=== PATIENT | female | born 1955 | race Caucasian/White ===

== ENCOUNTER 2023-02-18 19:47 | Emergency (ER) | payer MEDICARE, SELFPAY ==
--- NOTE | ~2023-02-18 | XR_ITS ---
EXAMINATION: XR CHEST CLINICAL INFORMATION: Chest pain COMPARISON: None available. TECHNIQUE: 2 views of the chest were obtained. FINDINGS: The lungs are well expanded. There is no focal consolidation, edema, or effusion. No pneumothorax. The cardiomediastinal silhouette is within normal limits. No acute osseous abnormality. Degenerative changes throughout the spine. XR/XR chest 2V IMPRESSION: Clear lungs.
[2023-02-18 19:54] VITALS: BP 157/59; PULSE 78; RESP 16; TEMP 36; O2SAT 97; BMI 30.9
--- NOTE | 2023-02-18 19:54 | ED_ITS ---
HPI - General Adult General Chief complaint: Headache Stated complaint: Severe headache Time Seen by Provider: 02/18/23 20:19 Source: patient Mode of arrival: ambulatory Limitations: language barrier (Icelandic-speaking medical editor utilized) History of Present Illness HPI narrative: Patient is a 67-year-old female who presents emergency department for evaluation. Patient reportedly developed a migraine headache this morning, frontal in location, which is consistent with her prior migraines. It is diffic ult to obtain history regarding migraine frequency, although she states that it is typical for her to get nausea with her migraines. They are typically brought on by eating certain foods which she does endorse eating yesterday. She typically takes Fioricet for her migraines in this works well, however she states that she did not take the Fioricet today. When asked why he did not take it she states because she ?was not feeling well?. Patient's family members present at bedside who states that the only reason she brought her here today was because she had reported vomiting blood. When asked who patient collaborate further arm wrist she states that she had a single episode of a small amount of emesis which she noted very few small flecks of blood to be present. Has had no further episodes of vomiting. She is also expressing upper abdominal pain, primarily in the epigastric region, which has been intermittent today. Denies any diarrhea, constipation, bloody or dark stools. And when asked she does having diffuse anterior chest pain earlier today which has since resolved. She denies fevers, chills, photophobia, phonophobia, vision changes, neck pain, neck stiffness, numbness or tingling of extremities, upper respiratory symptoms, genitourinary symptoms. Related Data Allergies Allergy/AdvReac Type Severity Reaction Status Date / Time No Known Allergies Allergy Verified 02/18/23 19:53 Review of Systems Review of Systems: Constitutional : No Weight loss, No Fever, No Chills ENT/Mouth :? No sore throat, No Rhinorrhea Eyes: No Swelling, No Redness Cardiovascular : Resolved Chest Pain, No SOB, No Edema Respiratory : No Cough, No Sputum, No Wheezing Gastrointestinal : Positive Nausea, Positive Vomiting, no Diarrhea, positive abdominal pain, No Hematochezia, No Melena Genitourinary : No Dysuria, No Urinary Frequency, No Hematuria, No Urgency? Musculoskeletal : No joint pain, No Myalgias, No Joint Swelling Skin : No Skin Lesions, No rash Neuro : No Weakness, No Numbness, No Dizziness, positive Headache Psych : No Anxiety/Panic, No Depression Heme/Lymph: No Bruising, No Lymphadenopathy Endocrine : No Polyuria, No Polydipsia Yes all other systems are reviewed and are negative [facility] Past Medical History Attestation statement: The following information was validated with the patient. Source: old records reviewed Social History Social History Advance Directives: No Advance Directives Information Provided: No Physical Exam ED Vital Signs: Vital Signs - 24 hr 02/18/23 19:54 Temperature 96.8 F Pulse Rate 78 Respiratory Rate 16 Blood Pressure 157/59 H Pulse Oximetry 97 Oxygen Delivery Method Room Air BMI result Body Mass Index 30.9 Appearance: Alert.?Oriented to person, place and time. No acute distress.?Normal affect. Eyes: Pupils equal, round and reactive to light.? ENT: Pharynx normal.?? Neck: Normal inspection.? Neck supple.?? CVS: Heart sounds normal. Normal heart rate and rhythm.? Pulses normal.?? Respiratory: No respiratory distress.? Lung sounds clear to auscultation bilate rally?? Abdomen: Soft and non-tender. No rigidity. No guarding. No rebound t enderness. Normoactive bowel sounds. Skin: Skin warm and dry.? Normal skin color.? ? Extremities: No lower extremity edema.? No calf ttp? Neuro: Moves all extremities spontaneously. Sensation intact bilaterally. CN II- XII intact. No focal neuro deficits. Ambulates with normal steady gait. Course Course Course Narrative: This is a rapid medical exam: Additional HPI, ROS, PE not included below will be deferred to primary provider. Patient is a 67-year-old Icelandic-speaking female with complaint of headache radiating to her neck since this morning, history of migraines, daughter states patient came from [place] around 2 weeks ago. Patient did not take any medications for her symptoms. Patient also reports nausea, and vomited earlier which had a small amount of blood in it. States headache is typical of her migraines. Denies vision changes. Denies worst at onset/worst of life. Reevaluation(s) Reevaluation #1: Troponin within normal limits, EKG revealing sinus bradycardia incomplete right bundle-branch block without acute ischemic findings, currently without any active chest pain symptoms had resolved earlier today and were vague in nature diffusely across the anterior chest. At this time low suspicion for ACS. Time: 22:26 Reevaluation #2: Headache with improvement after receiving Fioricet. Denies any abdominal pain at this time. Symptoms likely consistent with a gastritis, possibly viral in nature. History is not consistent with a for upper GI bleed. At this time feel that she is stable for discharge. Outpatient follow-up with her primary care provider within 3 days. Reviewed worrisome signs and symptoms that would warrant re-evaluation in the emergency department. All questions answered. Time: 23:21 Medications Administered Discontinued Medications Generic Name Dose Route Start Last Admin Trade Name Freq PRN Reason Stop Dose Admin Acetaminophen/Butalbital/Caffeine 1 tab 02/18/23 21:22 02/18/23 21:49 Butalb/Acetamin/Caff 50/325/40 Tablet PO 02/18/23 21:23 1 tab ONCE ONE Administration Al Hydroxide/Mg Hydroxide 30 ml 02/18/23 21:22 02/18/23 21:49 Magnesium Hydrox/Alum Hydrox 30 Ml Oral.Susp PO 02/18/23 21:23 30 ml ONCE ONE Administration Famotidine 20 mg 02/18/23 21:22 02/18/23 21:49 Famotidine 20 Mg Tablet PO 02/18/23 21:23 20 mg ONCE ONE Administration Medical Decision Making Medical Decision Making [facility] Narrative: Patient is a 67-year-old female with reported past medical history of migraines presenting to emergency department with headache consistent with her migraines, not described as severe the worst headache she has ever experienced, no red flag symptoms low suspicion for ICH, or intracranial mass. Predominant concern bringing her here today was flecks of blood that were noted in emesis and abdominal pain. At the time my examination she is overall well-appearing. Her abdominal examination is benign She is amenable to taking her Fioricet for migraine headache, in addition I have ordered Maalox in addition to Pepcid for gastrointestinal symptoms. Will obtain CBC to evaluate for leukocytosis/ anemia, CMP and lipase to evaluate for abnormal electrolytes /abnormal renal function/ abnormal hepatic/biliary function, EKG and troponin to evaluate for ischemia/ACS. and Urinalysis. Differential Diagnosis Differential Diagnoses: The differential diagnosis associated with the presentation includes (As noted above in addition to cholecystitis, cholelithiasis, gastritis, GERD, PUD, Priscilla-Stanford tear) Admission/Observation Consideration of admission/observation: Escalation of care including admission/observation considered (A considered admission for headache and abdominal pain, see course narrative for further detail) Lab Data MDM Lab Attestation statement: I reviewed the patient's lab results. CBC reveals no leukocytosis or anemia needing transfusion criteria. CMP is overall unremarkable. Lipase is within normal limits. Troponin 10.5, which is within normal range. Urinalysis without evidence of infection 02/18/23 21:42 02/18/23 21:42 Labs: Lab Results 02/18/23 02/18/23 02/18/23 Range/Units 21:42 21:42 21:42 WBC 6.5 (4.8-10.8) X10*3/uL RBC 4.17 L (4.20-5.50) X10*6/uL Hgb 12.8 (12.0-16.0) g/dl Hct 36.5 L (37.0-47.0) % MCV 87.5 (80.0-98.0) fL MCH 30.7 (27.0-33.0) pg MCHC 35.1 H (31.0-35.0) g/dl RDW 11.8 (11.0-16.0) % Plt Count 217 (160-400) X10*3/uL MPV 9.5 (9.4-12.3) fL Immature Gran % (Auto) 0.2 (0.0-0.4) % Neut % (Auto) 52.6 (45-73) % Lymph % (Auto) 36.5 (20-40) % Nicholas % (Auto) 9.7 (2-11) % Eos % (Auto) 0.5 (0-4) % Baso % (Auto) 0.5 (0-2) % Lymph # (Auto) 2.4 (1.2-4.9) X10*3/uL Nicholas # (Auto) 0.6 (0.1-1.2) X10*3/uL Eos # (Auto) 0.0 (0.0-0.4) X10*3/uL Baso # (Auto) 0.0 (0.0-0.2) X10*3/uL Abs Immat Gran (auto) 0.01 (0.00-0.03) X10*3/uL Absolute Neuts (auto) 3.4 (2.0-8.3) x10*3/uL Absolute Nucleated RBC 0.000 (0.0-0.012) X10*3/uL Nucleated RBC % (auto) 0.0 (0.0-0.2) /100WBC Sodium 132 L (135-145) mmol/L Potassium 3.7 (3.3-5.1) mmol/L Chloride 94 L (96-108) mmol/L Carbon Dioxide 24 (22-29) mmol/L Anion Gap 18 (12-20) BUN 14 (9-16) mg/dL Creatinine 0.70 (0.5-1.4) mg/dL Estim Creat Clear Calc 81.7 Estimated GFR > 60 Random Glucose 104 (60-115) mg/dL Calcium 9.8 (8.4-10.2) mg/dL Magnesium 2.1 (1.6-2.6) mg/dL Total Bilirubin 0.6 (0.0-1.0) mg/dL AST 21 (5-31) U/L ALT 16 (0-31) U/L Alkaline Phosphatase 68 (39-117) U/L Troponin I High Sens 10.5 (<3.5-17.0) ng/L Total Protein 7.5 (6.5-8.0) g/dL Albumin 4.4 (3.5-5.0) g/dL Lipase 42 (8-78) U/L Urine Color Urine Appearance Urine pH (5.0-9.0) Ur Specific [place] (1.005-1.025) Urine Protein (Neg-Trace) mg/dL Urine Glucose (UA) (Negative) mg/dL Urine Ketones (Negative) mg/dL Urine Blood (Negative) Urine Nitrite (Negative) Ur Leukocyte Esterase (Negative) 02/18/23 Range/Units 21:53 WBC (4.8-10.8) X10*3/uL RBC (4.20-5.50) X10*6/uL Hgb (12.0-16.0) g/dl Hct (37.0-47.0) % MCV (80.0-98.0) fL MCH (27.0-33.0) pg MCHC (31.0-35.0) g/dl RDW (11.0-16.0) % Plt Count (160-400) X10*3/uL MPV (9.4-12.3) fL Immature Gran % (Auto) (0.0-0.4) % Neut % (Auto) (45-73) % Lymph % (Auto) (20-40) % Nicholas % (Auto) (2-11) % Eos % (Auto) (0-4) % Baso % (Auto) (0-2) % Lymph # (Auto) (1.2-4.9) X10*3/uL Nicholas # (Auto) (0.1-1.2) X10*3/uL Eos # (Auto) (0.0-0.4) X10*3/uL Baso # (Auto) (0.0-0.2) X10*3/uL Abs Immat Gran (auto) (0.00-0.03) X10*3/uL Absolute Neuts (auto) (2.0-8.3) x10*3/uL Absolute Nucleated RBC (0.0-0.012) X10*3/uL Nucleated RBC % (auto) (0.0-0.2) /100WBC Sodium (135-145) mmol/L Potassium (3.3-5.1) mmol/L Chloride (96-108) mmol/L Carbon Dioxide (22-29) mmol/L Anion Gap (12-20) BUN (9-16) mg/dL Creatinine (0.5-1.4) mg/dL Estim Creat Clear Calc Estimated GFR Random Glucose (60-115) mg/dL Calcium (8.4-10.2) mg/dL Magnesium (1.6-2.6) mg/dL Total Bilirubin (0.0-1.0) mg/dL AST (5-31) U/L ALT (0-31) U/L Alkaline Phosphatase (39-117) U/L Troponin I High Sens (<3.5-17.0) ng/L Total Protein (6.5-8.0) g/dL Albumin (3.5-5.0) g/dL Lipase (8-78) U/L Urine Color Yellow Urine Appearance Clear Urine pH 6.5 (5.0-9.0) Ur Specific [place] 1.010 (1.005-1.025) Urine Protein Negative (Neg-Trace) mg/dL Urine Glucose (UA) Negative (Negative) mg/dL Urine Ketones Negative (Negative) mg/dL Urine Blood Negative (Negative) Urine Nitrite Negative (Negative) Ur Leukocyte Esterase Negative (Negative) Independent Interpretation I performed an independent interpretation of an: EKG and Plain X-Ray (I have personally interpreted chest x-ray and agree with radiologist's impression, no evidence of pneumonia, pneumothorax, or edema) Interpretation: Rate: 59 Rhythm:? Sinus bradycardia, incomplete right bundle-branch block Start:? Normal Normal P waves.? Normal OLE.?? Normal QRS complex.?? ST T wave :??No ST elevation, no ST depression, no T-wave inversion qTC: 425 prior studies:? None available for review The study has been interpreted contemporaneously by me. Radiology Impression Discussion of test interpretation with radiology: I have reviewed the radiologist's reading. Radiologist Impression: XR/XR chest 2V IMPRESSION: Clear lungs Discharge Plan Discharge Clinical Impression: Migraine, Gastritis Patient Disposition: Home, Self-Care Instructions: Gastritis (ED), Migraine Headache (ED) Additional Instructions: Continue taking your migraine medication as prescribed. Contact your primary care provider and arrange for a follow-up visit within 3 days. Return back to emergency department any new or worsening symptoms or concerns. Referrals: Physician,Unknown J [Primary Care Provider] -
--- NOTE | 2023-02-18 21:23 | ECG_ITS ---
Test Reason : cp Blood Pressure : / mmHG Vent. Rate : 059 BPM Atrial Rate : 059 BPM P-R Int : 176 ms QRS Dur : 096 ms QT Int : 430 ms P-R-T Axes : 048 -07 048 degrees QTc Int : 425 ms Sinus bradycardia Incomplete right bundle branch block Borderline ECG No previous ECGs available Referred By: Staci Roger Electronically Signed By:MICHAELA BARBER
[2023-02-18 21:46] LABS: MANUAL DIFF FLAG NO
[2023-02-18 21:48] LABS: Basophils Percent Auto 0.5 % (0-2); Eosinophils Percent Auto 0.5 % (0-4); Hematocrit 36.5 % (37.0-47.0); Hemoglobin 12.8 g/dl (12.0-16.0); Imm Gran Abs Auto 0.01 X10*3/uL (0.00-0.03); Imm Gran Pct Auto 0.2 % (0.0-0.4); Lymphocytes Absolute Auto 2.4 X10*3/uL (1.2-4.9); Lymphocytes Percent Auto 36.5 % (20-40); Mean Corpuscular HGB Conc 35.1 g/dl (31.0-35.0); Mean Corpuscular Hemoglobin 30.7 pg (27.0-33.0); Mean Corpuscular Volume 87.5 fL (80.0-98.0); Mean Platelet Volume 9.5 fL (9.4-12.3); Monocytes Absolute Auto 0.6 X10*3/uL (0.1-1.2); Monocytes Percent Auto 9.7 % (2-11); Neutrophils Absolute Auto 3.4 x10*3/uL (2.0-8.3); Neutrophils Percent Auto 52.6 % (45-73); Platelet Count 217 X10*3/uL (160-400); Red Blood Count 4.17 X10*6/uL (4.20-5.50); Red Cell Distribution Width 11.8 % (11.0-16.0); White Blood Count 6.5 X10*3/uL (4.8-10.8)
[2023-02-18] MEDS: Famotidine 20 MG TABLET PO (21:49)
[2023-02-18] MEDS: Butalb/Acetamin/Caff 50/325/40 TABLET 1 TAB PO (21:49)
[2023-02-18] MEDS: Magnesium Hydrox/Alum Hydrox 30 ML ORAL.SUSP PO (21:49)
[2023-02-18 22:00] LABS: Appearance Urine Clear; Color Urine Yellow; Glucose Urine UA Negative (Negative); Leukocyte Esterase Urine Negative (Negative); Nitrite Urine Negative (Negative); PH 6.5 (5.0-9.0); Urine Blood Negative (Negative); Urine Ketones Negative (Negative); Urine Protein Negative (Neg-Trace)
[2023-02-18 22:04] LABS: Alanine Aminotransferase 16 U/L (0-31); Albumin Level 4.4 g/dL (3.5-5.0); Alkaline Phosphatase 68 U/L (39-117); Anion Gap 18 (12-20); Aspartate Amino Transferase 21 U/L (5-31); Blood Urea Nitrogen 14 mg/dL (9-16); Calcium 9.8 mg/dL (8.4-10.2); Carbon Dioxide 24 mmol/L (22-29); Chloride 94 mmol/L (96-108); Creatinine Clr Calc Pharmacy 81.7; Estimated Glomerular Filt Rate > 60; Glucose Random 104 mg/dL (60-115); Lipase 42 U/L (8-78); Magnesium 2.1 mg/dL (1.6-2.6); Potassium 3.7 mmol/L (3.3-5.1); Sodium 132 mmol/L (135-145); Total Protein 7.5 g/dL (6.5-8.0)
[2023-02-18 22:09] LABS: Troponin-I High Sensitivity 10.5 ng/L (<3.5-17.0)
[2023-02-18 22:11] LABS: Bilirubin Total 0.6 mg/dL (0.0-1.0)
--- NOTE | 2023-02-18 22:53 | PC.NURSE ---
pt reports head pain now 01/25 sts is a little better pt awaiting provider re-eval call joshi within reach
== END 2023-02-18 23:44 | disposition home or self-care (01) ==
PROVIDERS: Nurse Practitioner Family; Emergency Provider Internal Medicine
DX: G43.909 Migraine, unspecified, not intractable, without status migrainosus (principal); K29.70 Gastritis, unspecified, without bleeding; R00.1 Bradycardia, unspecified; R07.89 Other chest pain; Z79.899 Other long term (current) drug therapy
CPT/HCPCS: 36415; 71046; 80053; 81003; 83690; 83735; 84484; 85025; 93005; 99283; 99284

== ENCOUNTER → 2023-02-18 21:23 | Outpatient (BNV) | payer MEDICARE, SELFPAY | PROVIDERS: Emergency Provider Internal Medicine; Visit Provider Internal Medicine | DX: R00.1 Bradycardia, unspecified (principal); R94.31 Abnormal electrocardiogram [ECG] [EKG] | CPT/HCPCS: 93010 ==

== ENCOUNTER 2023-05-21 12:36 | Emergency (ER) | payer MEDICARE, MEDICAID, SELFPAY ==
--- NOTE | ~2023-05-21 | XR_ITS ---
X-RAY RIGHT SHOULDER AND RIGHT HUMERUS CLINICAL HISTORY: Pain, fall. COMPARISON: No relevant prior studies are available for comparison. TECHNIQUE: 4 views of the right shoulder and 2 views of the right humerus. FINDINGS: Displaced fracture of the greater tuberosity of the humeral head. Trace superior subluxation of the humeral head with respect to the glenoid. Normal appearance of the acromioclavicular joint and preserved coracoclavicular distance. Visualized right-sided ribs and right lung are within normal limits. No abnormal soft tissue calcifications or unexpected radiopaque foreign bodies. XR/XR humerus RT IMPRESSION: 1. Displaced fracture of the greater tuberosity. 2. Trace superior subluxation of the humeral head with respect to the glenoid.
--- NOTE | ~2023-05-21 | XR_ITS ---
X-RAY RIGHT SHOULDER AND RIGHT HUMERUS CLINICAL HISTORY: Pain, fall. COMPARISON: No relevant prior studies are available for comparison. TECHNIQUE: 4 views of the right shoulder and 2 views of the right humerus. FINDINGS: Displaced fracture of the greater tuberosity of the humeral head. Trace superior subluxation of the humeral head with respect to the glenoid. Normal appearance of the acromioclavicular joint and preserved coracoclavicular distance. Visualized right-sided ribs and right lung are within normal limits. No abnormal soft tissue calcifications or unexpected radiopaque foreign bodies. XR/XR shoulder RT min 2V IMPRESSION: 1. Displaced fracture of the greater tuberosity. 2. Trace superior subluxation of the humeral head with respect to the glenoid.
[2023-05-21 12:41] VITALS: BP 188/90; PULSE 72; O2SAT 97; BMI 37.1
[2023-05-21 12:46] VITALS: BP 193/81; PULSE 100; RESP 16; TEMP 36.7; O2SAT 100
[2023-05-21] MEDS: traMADoL HCL 50 MG TABLET PO (12:58)
--- NOTE | 2023-05-21 13:00 | PC.NURSE ---
medication administered per provider order. pt awaiting xray.
--- NOTE | 2023-05-21 13:07 | ED.EXTPRO ---
HPI - Extremity Problem General Chief complaint: Extremity Injury, Upper Stated complaint: FELL ON R ARM SLING ON Time Seen by Provider: 05/21/23 12:45 Source: patient, family and EMS Mode of arrival: EMS Limitations: language barrier ( Sri [place]ankan-speaking supervisor silvering department utilized) History of Present Illness HPI Narrative: patient is a 67-year-old female presents to the emergency department via EMS. She presents emergency department after a mechanical trip and fall, while she was walking into her daughter's home reports that her sandal got caught, resulting in her falling forward, bracing herself onto her right arm, and reports hearing a loud snap. Endorsing pain to the right shoulder and right upper arm. Denies numbness or tingling to the right upper extremity. Denies head strike or loss of consciousness. Denies neck pain or stiffness Denies pain to additional extremities. Denies the use of anticoagulants. Related Data Previous Rx's Medication Instructions Recorded oxycodone 5 mg tablet 5 mg PO Q6H PRN pain #14 tabs 05/21/23 Allergies Allergy/AdvReac Type Severity Reaction Status Date / Time No Known Allergies Allergy Verified 05/21/23 12:44 Review of Systems Review of Systems: Yes all other systems are reviewed and are negative PMFSH Past Medical History Attestation statement: The following information was validated with the patient. Source: old records reviewed Social History Social History Advance Directives: No Advance Directives Information Provided: No Physical Exam Vital Signs: Vital Signs: Last Vital Signs Temp 98.1 F 05/21/23 12:46 Pulse 76 05/21/23 16:18 Resp 18 05/21/23 16:18 BP 186/80 H 05/21/23 16:18 Pulse Ox 97 05/21/23 16:18 O2 Del Method Room Air 05/21/23 16:18 BMI result Body Mass Index 37.1 Appearance: Alert.?Oriented to person, place and time. No acute distress.?Normal affect. Head: normocephalic, atraumatic Eyes: Pupils equal, round and reactive to light.? ENT: Pharynx normal.?? Neck: Normal inspection.? Neck supple.?? No midline cervical spine tenderness, step-offs, deformities. CVS: Heart sounds normal. Normal heart rate and rhythm.? Pulses normal.?? Chest wall without palpable tenderness, crepitus. Respiratory: No respiratory distress.? Lung sounds clear to auscultation bilaterally?? Abdomen: Soft and non-tender. Normoactive Extremities: right upper extremity with point tenderness to the shoulder, and proximal humerus, no obvious deformity. 2+ radial pulse bilaterally. Neuro: Moves all extremities spontaneously. Sensation intact bilaterally. No focal neuro deficits. Ambulates with normal steady gait. Medications Administered Discontinued Medications Generic Name Dose Route Start Last Admin Trade Name Freq PRN Reason Stop Dose Admin Morphine Sulfate 4 mg 05/21/23 13:38 05/21/23 13:42 Morphine Sulfate 4 Mg/Ml Cartridge IM 05/21/23 13:39 4 mg ONCE ONE Administration Protocol Ondansetron HCl 4 mg 05/21/23 13:52 05/21/23 13:54 Ondansetron Odt 4 Mg Tab.Rapdis TRANSLINGU 05/21/23 13:53 4 mg ONCE ONE Administration Tramadol HCl 50 mg 05/21/23 12:45 05/21/23 12:58 Tramadol Hcl 50 Mg Tablet PO 05/21/23 12:46 50 mg ONCE ONE Administration Medical Decision Making Medical Decision Making MDM Narrative: Patient is a 67-year-old female who presents emergency department via EMS for evaluation after mechanical trip and fall sustaining injury predominantly to right arm as per HPI. There is no head strike or reported loss of consciousness, she is not on anticoagulants, she has no focal neurological deficits upon examination. XR of the right shoulder and humerus revealing fracture of the proximal humeral head, a reviewed this imaging with orthopedics on-call, Corie RODRÍGUEZ who recommends placement in sling and outpatient follow-up. at this time extremity is neurovascularly intact distally. received tramadol for pain management initially without significant improvement, then received morphine IM with improvement in pain. Stable for discharge home. Discussed worrisome signs and symptoms that would warrant re-evaluation in the emergency department.. Differential Diagnosis Differential Diagnoses: The differential diagnosis associated with the presentation includes ( contusion, fracture, dislocation) Consult Healthcare Provider Management of the patient was discussed with: [facility] ( Orthopedics as noted above) Independent Interpretation I performed an independent interpretation of an: Plain X-Ray ( I personally interpreted XR imaging and agree with radiologist impression.) Radiology Impression Discussion of test interpretation with radiology: I have reviewed the radiologist's reading. Radiologist Impression: XR/XR humerus RT IMPRESSION: 1. Displaced fracture of the greater tuberosity. 2. Trace superior subluxation of the humeral head with respect to the glenoid. Independent Historian Clinical information obtained from an independent historian. History obtained from or confirmed by: EMS and Other ( Daughter present at bedside a confirms history) External Record Review External record reviewed: Other ([facility]; no conflicts) Prescription Management I considered prescription management with: Pain Medication Discharge Plan Discharge Clinical Impression: Fracture of head of humerus Qualifiers: Encounter type: initial encounter Fracture type: closed Laterality: right Qualified Code(s): S42.291A - Other displaced fracture of upper end of right humerus, initial encounter for closed fracture Patient Disposition: Home, Self-Care Additional Instructions: Please leave the sling in place at all times. You may apply ice to the area for 10-15 minutes 3-4 times daily. As discussed, please contact the orthopedic office to arrange for a follow-up visit. I have sent a prescription for oxycodone to the pharmacy to help with severe pain that is unrelieved by acetaminophen. Oxycodone is a narcotic medication, it may be addictive, it can make you drowsy, should not drive, drink, or work while taking this medication. If you develop severe worsening pain, numbness or tingling to the arm, cold sensation to the hand, any new or worsening symptoms or concerns you may return back to the emergency department for re-evaluation. Prescriptions: New oxycodone 5 mg tablet 5 mg PO Q6H PRN (Reason: pain) Qty: 14 0RF Rx Instructions: Partial Fill upon patient request. Referrals: Vesna Alexis PA-C [Physician Electric Detector Operator] - ( humeral head fracture) Interventions: ED Discharge Assessment Last Done: 05/21/23 16:41 Discharge Date/Time: 05/21/23 16:42 Print Language: [place]an
[2023-05-21] MEDS: Morphine Sulfate 4 MG/ML CARTRIDGE IM (13:42)
--- NOTE | 2023-05-21 13:44 | PC.NURSE ---
medication administered per provider order. will apply splint shortly.
[2023-05-21] MEDS: Ondansetron ODT 4 MG TAB.RAPDIS TRANSLINGU (13:54)
--- NOTE | 2023-05-21 14:15 | PC.NURSE ---
slint applied to right upper extremity. pt tolerated well. pt still verbalizing 10/10 pain at this time. zofran administered per provider order d/t nausea/vomiting into emesis bag.
[2023-05-21 16:18] VITALS: BP 186/80; PULSE 76; RESP 18; O2SAT 97
== END 2023-05-21 16:42 | disposition home or self-care (01) ==
PROVIDERS: Emergency Provider Emergency Medicine
DX: S42.291A Other displaced fracture of upper end of right humerus, initial encounter for closed fracture (principal); M79.601 Pain in right arm; M25.511 Pain in right shoulder; W01.10XA Fall on same level from slipping, tripping and stumbling with subsequent striking against unspecified object, initial encounter; Y93.9 Activity, unspecified; Y92.9 Unspecified place or not applicable; Y99.9 Unspecified external cause status; Z79.899 Other long term (current) drug therapy
CPT/HCPCS: 73030; 73060; 96372; 99283; 99284; J2270

== ENCOUNTER 2024-06-13 12:54 | Emergency (ER) | payer MEDICARE, MEDICAID, SELFPAY ==
--- NOTE | ~2024-06-13 | US_ITS ---
EXAMINATION: US TRIPLEX LOWER EXTREMITY, RIGHT CLINICAL INFORMATION: Pain, swelling, redness COMPARISON: None available. TECHNIQUE: Color-flow triplex imaging with spectral analysis and compression Doppler were performed on the right lower extremity. FINDINGS: Respiratory variation, normal compression and augmented flow are noted throughout the right lower extremity. The visualized common femoral vein, superficial femoral vein, profunda femoral vein, popliteal vein and midcalf peroneal and posterior tibial venous segments show no evidence of deep venous thrombosis. There is no Marsh's cyst. US/US venous duplex LE RT IMPRESSION: No evidence of deep venous thrombosis involving the right lower extremity. Electronically signed by: Dianne Trujillo MD 06/13/2024 03:58 PM EST RP
[2024-06-13 13:20] VITALS: BP 152/53; PULSE 83; RESP 18; TEMP 37; O2SAT 94; BMI 42.9
--- NOTE | 2024-06-13 13:25 | ED.GENADULT ---
HPI - General Adult General Chief complaint: Extremity Injury, Lower Stated complaint: Swollen R Leg No Injury Time Seen by Provider: 06/13/24 18:09 Source: patient Mode of arrival: ambulatory Limitations: no limitations History of Present Illness ED Provider: cristo ZIMMERMAN narrative: Patient been complaining of both lower extremity swelling more on the right side for last 3 months since started on amlodipine no shortness a breath liver problems swelling gets better in a.m. gets worse in the evening Related Data Previous Rx's ?Medication ?Instructions ?Recorded oxycodone 5 mg tablet 5 mg PO Q6H PRN pain #14 tabs 05/21/23 losartan 50 mg-hydrochlorothiazide 1 tab PO DAILY #30 tabs 06/13/24 12.5 mg tablet Allergies Allergy/AdvReac Type Severity Reaction Status Date / Time No Known Allergies Allergy Verified 06/13/24 13:22 Review of Systems Review of Systems: Yes all other systems are reviewed and are negative PMFSH Social History Social History Advance Directives: No Advance Directives Information Provided: No Physical Exam ED Vital Signs: Vital Signs - 24 hr 06/13/24 13:20 06/13/24 16:52 06/13/24 18:52 Temperature 98.6 F 98.3 F 98.3 F Pulse Rate 83 72 72 Respiratory Rate 18 16 16 Blood Pressure 152/53 H 150/61 H 150/61 H Pulse Oximetry 94 94 94 Oxygen Delivery Method Room Air Room Air Room Air BMI result Body Mass Index 42.9 Appearance: Alert. Oriented X3. No acute distress. Eyes: No pallor or icterus ENT: Pharynx normal. Oral Mucosa moist Neck: Normal inspection. Neck supple. CVS: Normal heart rate and rhythm. Pulses normal. Respiratory: No respiratory distress. Equal air entry bilateral, no wheezing/rales/rhonchi Abdomen: Soft and nontender. Bowel sounds are present, no mass palpable, no CVA tenderness Skin: Skin warm and dry. Normal skin color. Normal skin turgor. Extremities: 3+R lower extremity edema. 1+ left lower leg edema No calf tenderness Neuro: Oriented X 3. No motor deficit. Course Course Course Narrative: This is a rapid medical exam performed by Harry Almaguer NP: Additional HPI, ROS, PE not included below will be deferred to primary provider. Patient is a 68-year-old female presenting with complaint of pain, itching, and swelling to right lower leg, referred to ED by PCP. Plan: labs, US Medical Decision Making Medical Decision Making [facility] Narrative: Patient with dependent leg edema according to patient's started after amlodipine was started 3 months ago venous Doppler negative labs are stable no signs of heart failure will prescribe a losartan with hydrochlorothiazide will stop amlodipine Differential Diagnosis Differential Diagnoses: The differential diagnosis associated with the presentation includes CHF/DVT/dependent edema Lab Data [facility] Lab Attestation statement: I reviewed the patient's lab results. 06/13/24 13:38 06/13/24 13:38 Labs: Lab Results 06/13/24 Range/Units 13:38 WBC 5.5 (4.8-10.8) X10*3/uL RBC 4.33 (4.20-5.50) X10*6/uL Hgb 13.1 (12.0-16.0) g/dl Hct 38.6 (37.0-47.0) % MCV 89.1 (80.0-98.0) fL MCH 30.3 (27.0-33.0) pg MCHC 33.9 (31.0-35.0) g/dl RDW 12.9 (11.0-16.0) % Plt Count 217 (160-400) X10*3/uL MPV 9.9 (9.4-12.3) fL Immature Gran % (Auto) 0.2 (0.0-0.4) % Neut % (Auto) 56.1 (45-73) % Lymph % (Auto) 32.9 (20-40) % [place] % (Auto) 8.5 (2-11) % Eos % (Auto) 1.6 (0-4) % Baso % (Auto) 0.7 (0-2) % Lymph # (Auto) 1.8 (1.2-4.9) X10*3/uL [place] # (Auto) 0.5 (0.1-1.2) X10*3/uL Eos # (Auto) 0.1 (0.0-0.4) X10*3/uL Baso # (Auto) 0.0 (0.0-0.2) X10*3/uL Abs Immat Gran (auto) 0.01 (0.00-0.03) X10*3/uL Absolute Neuts (auto) 3.1 (2.0-8.3) x10*3/uL Absolute Nucleated RBC 0.000 (0.0-0.012) X10*3/uL Nucleated RBC % (auto) 0.0 (0.0-0.2) /100WBC PT 11.1 (10.9-12.4) SEC INR 1.0 (0.9-1.1) Sodium 136 (135-145) mmol/L Potassium 3.8 (3.3-5.1) mmol/L Chloride 100 (96-108) mmol/L Carbon Dioxide 27 (22-29) mmol/L Anion Gap 13 (12-20) BUN 13 (9-16) mg/dL Creatinine 0.84 (0.5-1.4) mg/dL Estim Creat Clear Calc 80.2 Estimated GFR > 60 Random Glucose 148 H (60-115) mg/dL Calcium 9.5 (8.4-10.2) mg/dL Total Bilirubin 0.3 (0.0-1.0) mg/dL AST 53 H (5-31) U/L ALT 27 (0-31) U/L Alkaline Phosphatase 65 (39-117) U/L Total Protein 7.3 (6.5-8.0) g/dL Albumin 4.3 (3.5-5.0) g/dL Discharge Plan Discharge Clinical Impression: Leg edema Patient Disposition: Home, Self-Care Instructions: Leg Edema (ED) Additional Instructions: Keep your leg elevated Stop amlodipine as likely this is causing the swelling of the leg To start new blood pressure medication with water pill daily Follow with your PCP Prescriptions: New losartan-hydrochlorothiazide 50-12.5 mg tablet 1 tab PO DAILY Qty: 30 0RF No Action oxycodone 5 mg tablet 5 mg PO Q6H PRN (Reason: pain) Qty: 14 0RF Rx Instructions: Partial Fill upon patient request. Interventions: ED Discharge Assessment Last Done: 06/13/24 18:52 Discharge Date/Time: 06/13/24 18:52 Print Language: Irish
[2024-06-13 13:43] LABS: MANUAL DIFF FLAG NO
[2024-06-13 13:48] LABS: Basophils Percent Auto 0.7 % (0-2); Eosinophils Absolute Auto 0.1 X10*3/uL (0.0-0.4); Eosinophils Percent Auto 1.6 % (0-4); Hematocrit 38.6 % (37.0-47.0); Hemoglobin 13.1 g/dl (12.0-16.0); Imm Gran Abs Auto 0.01 X10*3/uL (0.00-0.03); Imm Gran Pct Auto 0.2 % (0.0-0.4); Lymphocytes Absolute Auto 1.8 X10*3/uL (1.2-4.9); Lymphocytes Percent Auto 32.9 % (20-40); Mean Corpuscular HGB Conc 33.9 g/dl (31.0-35.0); Mean Corpuscular Hemoglobin 30.3 pg (27.0-33.0); Mean Corpuscular Volume 89.1 fL (80.0-98.0); Mean Platelet Volume 9.9 fL (9.4-12.3); Monocytes Absolute Auto 0.5 X10*3/uL (0.1-1.2); Monocytes Percent Auto 8.5 % (2-11); Neutrophils Absolute Auto 3.1 x10*3/uL (2.0-8.3); Neutrophils Percent Auto 56.1 % (45-73); Platelet Count 217 X10*3/uL (160-400); Red Blood Count 4.33 X10*6/uL (4.20-5.50); Red Cell Distribution Width 12.9 % (11.0-16.0); White Blood Count 5.5 X10*3/uL (4.8-10.8)
[2024-06-13 13:52] LABS: Prothrombin Time 11.1 SEC (10.9-12.4)
[2024-06-13 13:57] LABS: Alanine Aminotransferase 27 U/L (0-31); Albumin Level 4.3 g/dL (3.5-5.0); Alkaline Phosphatase 65 U/L (39-117); Anion Gap 13 (12-20); Aspartate Amino Transferase 53 U/L (5-31); Bilirubin Total 0.3 mg/dL (0.0-1.0); Blood Urea Nitrogen 13 mg/dL (9-16); Calcium 9.5 mg/dL (8.4-10.2); Carbon Dioxide 27 mmol/L (22-29); Chloride 100 mmol/L (96-108); Creatinine Clr Calc Pharmacy 80.2; Estimated Glomerular Filt Rate > 60; Glucose Random 148 mg/dL (60-115); Potassium 3.8 mmol/L (3.3-5.1); Sodium 136 mmol/L (135-145); Total Protein 7.3 g/dL (6.5-8.0)
[2024-06-13 16:52] VITALS: BP 150/61; PULSE 72; RESP 16; TEMP 36.8; O2SAT 94
[2024-06-13 18:52] VITALS: BP 150/61; PULSE 72; RESP 16; TEMP 36.8; O2SAT 94
== END 2024-06-13 18:52 | disposition home or self-care (01) ==
PROVIDERS: Registered Nurse Emergency; Emergency Provider Internal Medicine
DX: R60.0 Localized edema (principal); Z79.899 Other long term (current) drug therapy
CPT/HCPCS: 36415; 80053; 85025; 85610; 93971; 99282; 99284